=== PATIENT | male | born 1945 | race Caucasian/White ===

== ENCOUNTER → 2018-10-03 10:52 | Outpatient (CLI) | payer MEDICARE, OTHER, SELFPAY ==
--- NOTE | 2018-10-03 | DI.NM.S_ITS ---
PROCEDURE: NM BONE 3 PHASE RADIOPHARMACEUTICAL: 21.6 mCi Tc-99m MDP IV. INDICATIONS: RIGHT HIP STRESS FRACTURE TECHNIQUE: Multiple bone scintigrams were obtained after intravenous injection of Tc-99m MDP, including flow, blood pool, and delayed images centered to the region of interest. COMPARISON: [facility], CR, XR PELVIS WITH LATERAL HIP RIGHT, 09/13/2017, 9:04. [facility], CR, XR PELVIS WITH LATERAL HIP RIGHT, 07/15/2018, 8:45. FINDINGS: Immediate phase images demonstrate no areas of hyperemia. Intermediate phase images demonstrate no increased radiotracer activity to suggest blood pooling. Delayed images demonstrate photopenia in the proximal right femur compatible with right hip prosthesis. No increased radiotracer uptake identified adjacent to the right hip prosthesis in the delayed phase to suggest fracture, loosening or infection. Subtle radiotracer uptake noted adjacent to the right hip prosthesis in the region of heterotopic bone identified by plain film radiograph. IMPRESSION: No scintigraphic evidence of stress fracture. Dictated by: Halley Smith MD, PhD on 10/04/2018 at 16:28 Approved by: Halley Smith MD, PhD on 10/04/2018 at 16:31
== END ==
PROVIDERS: PCP Registered Nurse; Visit Provider Physical Medicine & Rehabilitation
DX: M84.351A Stress fracture, right femur, initial encounter for fracture (principal); Z96.641 Presence of right artificial hip joint; M25.551 Pain in right hip
CPT/HCPCS: 78315; A9503